=== PATIENT | female | born 1950 | race African-American/Black ===

== ENCOUNTER 2022-02-10 05:47 | Day surgery (SDC) | payer MEDICARE, OTHER ==
[~2022-02-10] VITALS: Ht 162.6 cm; Wt 51.8 kg
[~2022-02-10 05:47] MED LIST: SODIUM CHLORIDE 0.9% 1,000 ML IV ONE
[2022-02-10] MEDS ORDERED: SODIUM CHLORIDE 0.9% 1,000 ML ONE (06:53)
[2022-02-10 06:55] LABS: COVID AG,FIA SOURCE NASAL SWAB
[2022-02-10] MEDS ORDERED: SODIUM CHLORIDE 0.9% 10 ML ONE (07:15)
[2022-02-10] MEDS ORDERED: FentaNYL CITRATE PF 100 MCG/2 ML VIAL ONE (07:53)
[2022-02-10] MEDS ORDERED: MIDAZOLAM HCL 5 MG/ML VIAL ONE (07:53)
[2022-02-10] MEDS ORDERED: MethylPREDNISolone SOD SUCC 125 MG/2 ML VIAL IVP ONE (09:00)
[2022-02-10] MEDS ORDERED: MethylPREDNISolone SOD SUCC 125 MG/2 ML VIAL ONE (09:33)
[2022-02-10] MEDS ORDERED: OXYGEN THERAPY IH SCH (20:00)
== END 2022-02-10 11:10 | disposition home or self-care (01) ==
LOC: SURGERY 05:47
PROVIDERS: ATTEND Internal Medicine Critical Care Medicine
DX: J38.4 Edema of larynx (principal); B37.0 Candidal stomatitis; J44.9 Chronic obstructive pulmonary disease, unspecified; Z79.899 Other long term (current) drug therapy; Z98.890 Other specified postprocedural states; Z88.6 Allergy status to analgesic agent; Z86.73 Personal history of transient ischemic attack (TIA), and cerebral infarction without residual deficits; Z79.82 Long term (current) use of aspirin
CPT/HCPCS: 31623; 31624; 71045; 87015; 87070; 87101; 87206; 87220; 87426; 88108; 88184; 88185; 88305; 93005; C9803; J2250; J2930; J3010; J7030